=== PATIENT | female | born 1995 | race Caucasian/White ===

== ENCOUNTER 2018-11-07 15:15 | Emergency (ER) | payer SELFPAY ==
[~2018-11-07] VITALS: Ht 154.9 cm; Wt 65.0 kg
[2018-11-07 15:18] VITALS: Ht 154.9 cm; Wt 65.0 kg
[2018-11-07] MEDS ORDERED: CEPH-443 PO (19:09)
[2018-11-07] MEDS ORDERED: ACET500C5 PO (19:09)
[2018-11-07 19:35] VITALS: BP 124/77; PULSE 75; RESP 18
--- NOTE | 2018-11-10 18:10 | ERD ---
ER Documentation Chief Complaint Chief Complaint spotting x 4 days , 9 weeks preg , lmp 08/24/18 HPI 22-year-old female patient with no significant past medical history presents the ED complaining of vaginal spotting that started about 4 days ago from patient's visit. Patient reports that she is about 9 weeks and her last menstruation is on August 24, 2018. States that she is a G1, P0. States that she has had to change to pads and has some lower abdominal cramping. Patient rates her pain a 4 out of 10. Denies any chest pain, shortness of breath, dysuria, vomiting, diarrhea, vaginal discharge, flank pain. Patient reports that she does not have an DAIRY NUTRITIONIST. States that she is taking vitamins. ROS All systems reviewed and are negative except as per history of present illness. Medications Home Meds Active Scripts Acetaminophen* (Tylophen*) 500 Mg Capsule, 1 CAP PO Q6H PRN for PAIN AND OR ELEVATED TEMP, #20 CAP Prov:LILLIANA MASON PA-C 11/07/18 Cephalexin* (Keflex*) 500 Mg Capsule, 500 MG PO QID for 7 Days, CAP Prov:LILLIANA MASON PA-C 11/07/18 Allergies Allergies: Coded Allergies: No Known Allergy (Unverified , 11/07/18) PMhx/Soc History of Surgery: No Anesthesia Reaction: No Hx Neurological Disorder: No Hx Respiratory Disorders: No Hx Cardiac Disorders: No Hx Psychiatric Problems: No Hx Miscellaneous Medical Probl: No Hx Alcohol Use: No Hx Substance Use: No Hx Tobacco Use: No Smoking Status: Never smoker FmHx Family History: No diabetes, No coronary disease Physical Exam Vitals Vital Signs Date Temp Pulse Resp B/P (MAP) Pulse Ox O2 O2 Flow FiO2 Time Delivery Rate 11/07/18 98.7 75 18 124/77 100 Room Air 19:35 (93) 11/07/18 98.7 77 18 120/77 100 Room Air 19:15 (91) 11/07/18 98.1 81 18 130/70 100 15:18 (90) Physical Exam Const: Chk-rdz-vzhflzwck, well-nourished. In no acute distress. Head: Atraumatic, normocephalic Eyes: Normal Conjunctiva without injection. No purulent discharge. ENT: Normal external ear, nose. Moist oropharynx without tonsillar exudates. Non-erythematous pharynx. Uvula midline. No drooling. No trismus. Neck: No cervical midline tenderness. Full range of motion. No meningismus. No cervical lymphadenopathy. No JVD. Resp: Clear to auscultation bilaterally. No wheezing, rhonchi, rales, or crackles. No accessory muscle use. No retractions. Cardio: Regular rate and rhythm. No murmurs, rubs or gallops. Abd: Soft, left and right lower pelvic tenderness, non distended. Normal bowel sounds. No palpable masses. No rebound tenderness. No guarding. Negative McBurney's point. Negative psoas sign. Negative obturator sign. Skin: No petechiae or rashes Back: No midline tenderness. No CVA tenderness. Ext: No cyanosis, or edema. Neur: Awake and alert. Normal gait. Normal coordination. Psych: Normal Mood and Affect Result Diagram: 11/07/18 1652 11/07/18 1652 Results 24 hrs Laboratory Tests Test 11/07/18 16:52 11/07/18 19:07 11/08/18 09:20 11/08/18 09:20 White Blood 8.7 10^3/ul Count Red Blood Count 4.39 10^6/ul Hemoglobin 13.4 g/dl Hematocrit 38.4 % Mean Corpuscular 87.5 fl Volume Mean Corpuscular 30.5 pg Hemoglobin Mean Corpuscular 34.9 g/dl Hemoglobin Mariola nt Red Cell 12.7 % Distribution Width Platelet Count 256 10^3/UL Mean Platelet 10.7 fl Volume Immature 0.600 % Granulocytes % Neutrophils % 64.1 % Lymphocytes % 27.6 % Monocytes % 6.2 % Eosinophils % 1.0 % Basophils % 0.5 % Nucleated Red 0.0 /100WBC Blood Cells % Immature 0.050 10^3/ul Granulocytes # Neutrophils # 5.6 10^3/ul Lymphocytes # 2.4 10^3/ul Monocytes # 0.5 10^3/ul Eosinophils # 0.1 10^3/ul Basophils # 0.0 10^3/ul Nucleated Red 0.0 10^3/ul Blood Cells # Urine Color STRAW Urine Clarity CLEAR Urine pH 6.0 Urine Specific 1.005 [place] Urine Ketones NEGATIVE mg/dL Urine Nitrite NEGATIVE mg/dL Urine Bilirubin NEGATIVE mg/dL Urine NEGATIVE mg/dL Urobilinogen Urine Leukocyte TRACE Froilan/ul Esterase Urine 2 /HPF Microscopic RBC Urine 1 /HPF Microscopic WBC Urine Bacteria FEW /HPF Urine Hemoglobin 1+ mg/dL Urine Glucose NEGATIVE mg/dL Urine Total NEGATIVE mg/dl Protein Sodium Level 138 mmol/L Potassium Level 4.1 mmol/L Chloride Level 106 mmol/L Carbon Dioxide 23 mmol/L Level Anion Gap 9 Blood Urea 5 mg/dl Nitrogen Creatinine 0.47 mg/dl Est Glomerular > 60 mL/min Filtrat Rate mL/min Glucose Level 102 mg/dl Calcium Level 9.9 mg/dl Beta HCG, 09271.0 mIU/ml Quantitative Bedside Urine pH 6.0 (LAB) Bedside Urine Negative Protein (LAB) Bedside Urine Negative Glucose (UA) Bedside Urine Negative Ketones (LAB) Bedside Urine Trace-intact Blood Bedside Urine Negative Nitrite (LAB) Bedside Urine Trace Leukocyte Estera se (L Lab Scanned BLOOD TRANSFUSI LAB [id number] Report ON Procedures/MDM 22-year-old female patient with no significant past medical history presents to ED complaining of vaginal spotting that started 4 days ago. Patient is afebrile and nontoxic-appearing. An ultrasound, beta-hCG, CBC, type and RH, UA was ordered to evaluate patient. CBC: No evidence of severe infection or anemia Urine: No elevation in nitrites, trace leukocyte esterase, hematuria. Rh: O negative. Patient will receive Rhogam due to vaginal bleeding upon presentation. BUN/Cr within normal limits. No acute or chronic kidney injury therefore can receive Rhogam. beta Hc IMPRESSION: Single live intrauterine with an estimated gestational age of 9 weeks and 3 days, based on ultrasound measurements. IZZY based on ultrasound measurements is 06/09/19. Patient will be treated for a urinary tract infection based on the trace leukocyte esterase noted. Patient's bleeding symptoms have stabilized while in the department. Low suspicion for symptomatic anemia, ectopic , sepsis, PID, appendicitis, ovarian torsion, tubo-ovarian abscess, surgical abdomen, or other emergent conditions. Patient was educated that there is a risk for threatened . Patient to follow up with DAIRY NUTRITIONIST in 2 days for further evaluation and treatment. Patient is to return sooner to the ED for any worsening symptoms. Patient's questions were answered. Patient understood and agreed with discharge plan. Departure Diagnosis: Primary Impression: Vaginal bleeding in patient at less than 20 weeks ges... Condition: Stable Patient Instructions: Urinary Tract Infections in Women, Bleeding During Early Referrals: [facility] YOU HAVE RECEIVED A MEDICAL SCREENING EXAM AND THE RESULTS INDICATE THAT YOU DO NOT HAVE A CONDITION THAT REQUIRES URGENT TREATMENT IN THE EMERGENCY DEPARTMENT. FURTHER EVALUATION AND TREATMENT OF YOUR CONDITION CAN WAIT UNTIL YOU ARE SEEN IN YOUR DOCTORS OFFICE WITHIN THE NEXT 1-2 DAYS. IT IS YOUR RESPONSIBILITY TO MAKE AN APPOINTMENT FOR FOLOW-UP CARE. IF YOU HAVE A PRIMARY DOCTOR --you should call your primary doctor and schedule an appointment IF YOU DO NOT HAVE A PRIMARY DOCTOR YOU CAN CALL OUR PHYSICIAN REFERRAL HOTLINE AT IF YOU CAN NOT AFFORD TO SEE A PHYSICIAN YOU CAN CHOSE FROM THE FOLLOWING [facility] [address] [facility] [address] [facility] [facility] [address] [facility] [address] [facility] [address] [facility]. [facility] [address] [facility]. [facility] YOU HAVE RECEIVED A MEDICAL SCREENING EXAM AND THE RESULTS INDICATE THAT YOU DO NOT HAVE A CONDITION THAT REQUIRES URGENT TREATMENT IN THE EMERGENCY DEPARTMENT. FURTHER EVALUATION AND TREATMENT OF YOUR CONDITION CAN WAIT UNTIL YOU ARE SEEN IN YOUR DOCTORS OFFICE WITHIN THE NEXT 1-2 DAYS. IT IS YOUR RESPONSIBILITY TO MAKE AN APPOINTMENT FOR FOLOW-UP CARE. IF YOU HAVE A PRIMARY DOCTOR --you should call your primary doctor and schedule and appointment IF YOU DO NOT HAVE A PRIMARY DOCTOR YOU CAN CALL OUR PHYSICIAN REFERRAL HOTLINE AT . IF YOU CAN NOT AFFORD TO SEE A PHYSICIAN YOU CAN CHOSE FROM THE FOLLOWING [facility] INSTITUTIONS: [facility] [address] [place] [address] [facility] [address] [place] [address] [facility] [address] [place] [address] [facility] URGENT CARE/SPECIALTIES [facility] [address] [facility] [address] [place] [address] OFFICE FAX , ADENI[place] [address] [place] [address] [address] GIVENS, [place] [address] [place] [address] [address] [facility] [address] [facility], [address], [facility] [address] [address] [facility] [address] [facility] [place] [address] [facility] [address] [place] [address] [address] [facility] [address] [address], [place] [address] [address]LMOS, [address] [facility], [place] [address] [address] [facility] [address] [place], [place] [id number] [facility] Hours: 8:00 am - 5:00 pm Additional Instructions: Call your DAIRY NUTRITIONIST TOMORROW for an appointment during the next 2-3 days for repeat beta hcg blood work. See the doctor sooner or return here if your condition worsens before your appointment time. LILLIANA MASON PA-C November 10, 2018 18:10
== END 2018-11-07 19:30 | disposition home or self-care (01) ==
LOC: FTE 15:15
DX: O20.9 Hemorrhage in early pregnancy, unspecified (principal); Z3A.09 9 weeks gestation of pregnancy
CPT/HCPCS: 76801; 80048; 81001; 84702; 85025; 86900; 86901; J2790; 36415; 81003